=== PATIENT | female | born 1950 | race Caucasian/White ===

== ENCOUNTER 2020-08-06 16:39 | Observation (INO) | payer MEDICARE ==
[~2020-08-06] VITALS: Ht 152.4 cm; Wt 70.0 kg
[~2020-08-06 16:39] MED LIST: ACYCLOVIR400 MG PO; ADVAIR HF1 IN; ADVAIR HF2 IN; ALPHA LIPOIC300 MG PO; AMOX/K CLAV875 M1 PO; BENZONATATE200 MG PO; BUPROPION HCL300 MG PO; BUPROPION OR; CHERATUSSIN OR; CITALOPRAM20 MG PO; CLARITIN RDT10 MG PO; CRESTOR10 MG PO; CRESTOR20 MG PO; DILTIAZEM CD180 MG PO; EFFEXOR37.5 MG PO; ERY-TAB250 MG OR; ERYTHROMYCIN250 MG OR; IBUPROFEN400 MG PO; LEVOCETIRIZI OR; LEVOCETIRIZI PO; LEVOTHROID88 MCG PO; LEVOTHYROXIN88 MC1 PO; LEXAPRO10 MG PO; LORTAB 7.5 OR; LOTENSIN HCT1 TA2 PO; MECLIZINE25 MG PO; MEDDOSEPAK PO; MOTRIN600 MG/TAB PO; MULTIVITAMI1 OR; NASONEX50 MCG/AC; PROAIR HFA IN; PROVENTIL INH17 GM IN; SYMBICORT1 AE1 IN; SYNTHROID100 MCG OR; TESSALON200 MG PO; TRAZODONE100 MG PO; TRAZODONE50 MG PO; TRIAMCINOLON0.11 EX; VESICARE5 MG OR; VITAMIN B-121000 MC1 SL; VITAMIN C500 MG OR; VITAMIN D1000 UNI1 PO; VITAMIN D31000 UNI1 OR; VOSOL2 % OT; VYTORIN 10/201 TAB OR; WAL ZYR D PO; XYZAL5 MG PO; ZINC50 M1 OR; ZITHROMAX500 MG PO; ZPAK PO; ZYRTEC-D AL1 OR; ZYRTEC-D ALG PO; ZYRTEC10 MG OR; [UNRECOGNIZED DRUG - OTHER] XX
--- NOTE | 2020-08-06 16:48 | NUR ---
PT BROUGHT BACK TO ER WITH FAMILY PER W/C
--- NOTE | 2020-08-06 17:46 | NUR ---
IV MEDS AND FLUIDS INFUSING WITHOUT DIFFICULTY. VITALS STABLE ON MONITOR. AT BEDSIDE. CALL LIGHT WITHIN REACH.
[2020-08-06 17:52] LABS: ALKALINE PHOSPHATASE 111 u/l (38-126); ANION GAP 15 (6-22 (CALC)); BILIRUBIN, TOTAL 0.9 mg/dL (0.0-1.4); BUN 14 mg/dL (8-23); BUN/CREATININE RATIO 18 (12-20 (CALC)); CARBON DIOXIDE 25 mmol/l (22-30); CHLORIDE 99 mmol/l (95-108); CREATININE 0.8 mg/dL (0.5-1.0); GFR > 60 ML/MIN (>=60 (CALC)); GFR FOR AFR.AMER. > 60 ML/MIN (>=60 (CALC)); LIPASE 20 u/l (23-300); POTASSIUM 4.5 mmol/l (3.5-5.1); SGOT/AST 25 u/l (9-36); SODIUM 134 mmol/l (137-146); TOTAL PROTEIN 7.5 g/dL (6.3-8.2)
[2020-08-06 18:06] LABS: HEMATOCRIT 42.3 % (37.0-47.0); HEMOGLOBIN 13.6 g/dl (12.0-16.0); IMMATURE GRANULOCYTES 0.6 % (0.0-5.0); MEAN CELL VOLUME 89.6 fL CALC (80.0-100.0); MEAN CORPUSCULAR HGB 28.8 pG CALC (26.0-32.0); MEAN CORPUSCULAR HGB CONC 32.2 g/dL CAL (32.0-36.0); NEUT# 13.45 thou/uL (2.00-7.15); RED BLOOD COUNT 4.72 mill/uL (4.20-5.60); RED CELL DISTRI WIDTH 12.8 % (11.5-15.5)
--- NOTE | 2020-08-06 18:21 | NUR ---
PT RETURNED FROM RADIOLOGY, ATTACHED TO MONITOR. IV MEDS CONTINUE TO INFUSE WITHOUT DIFFICULTY.
[2020-08-06 18:25] LABS: GFR > 60 ML/MIN (>=60 (CALC)); GFR FOR AFR.AMER. > 60 ML/MIN (>=60 (CALC))
[2020-08-06] MEDS ORDERED: LOSARTAN POTASS25 MG PO (18:39)
--- NOTE | 2020-08-06 18:57 | NUR ---
REPORT GIVEN TO MARIAM BILLS.
--- NOTE | 2020-08-06 19:03 | NUR ---
HAND OFF REPORT RECEIVED FROM OCTOBER
[2020-08-06 19:56] LABS: URINE BILIRUBIN - DIPSTICK NEGATIVE (NEGATIVE); URINE BLOOD DIPSTICK TRACE-LYSED (NEGATIVE); URINE COLOR YELLOW; URINE GLUCOSE - DIPSTICK NEGATIVE (NEGATIVE); URINE KETONE NEGATIVE (NEGATIVE); URINE LEUK ESTERASE NEGATIVE (NEGATIVE); URINE NITRITE - DIPSTICK NEGATIVE (Negative); URINE PROTEIN - DIPSTICK NEGATIVE (NEG-TRACE); URINE SPECIFIC GRAVITY <=1.005; URINE UROBILINOGEN - DIPSTICK 0.2 E.U./dL (0.2)
--- NOTE | 2020-08-06 20:00 | NUR ---
TELEPHONE REPORT RECEIVED FROM Augustin MERINO RN IN ED, ROOM 277 PREPARED TO RECEIVE PT.
[2020-08-06 20:15] VITALS: BP 131/80
--- NOTE | 2020-08-06 20:15 | NUR ---
PT ARRIVES TO UNIT VIA STRETCHER ACCOMPANIED BY Augustin MERINO RN. PT AMBULATORY TO BED WITH STEADY BALANCED GAIT.
--- NOTE | 2020-08-06 21:20 | NUR ---
PHYSICAL ASSESMENT AND ADMISSION COMPLETE. SCHEDULED MEDICATION ADMINISTERED. SEE E-MAR. PLAN OF CARE REVIEWED. PT VERBALIZES UNDERSTANDING AND DENIES QUESTIONS. PT DENIES NEEDS AT THIS TIME. CALL WALTER WITHIN REACH AGRESS TO CALL PRN.
[2020-08-07] VITALS: BP 122/64
--- NOTE | 2020-08-07 01:15 | NUR ---
PT LAYING IN BED WITH EYES CLOSED, APPEARS TO BE SLEEPING COMFORTABLY. RESPIRATIONS REGULAR AND UNLABORED. NO APPARENT DISTRESS. CALL WALTER REMAINS WITHIN REACH.
[2020-08-07 04:00] VITALS: BP 123/52
[2020-08-07 04:46] LABS: HEMATOCRIT 39.6 % (37.0-47.0); HEMOGLOBIN 12.8 g/dl (12.0-16.0); MEAN CORPUSCULAR HGB 28.8 pG CALC (26.0-32.0); MEAN CORPUSCULAR HGB CONC 32.3 g/dL CAL (32.0-36.0); RED BLOOD COUNT 4.45 mill/uL (4.20-5.60); RED CELL DISTRI WIDTH 12.8 % (11.5-15.5)
[2020-08-07 05:12] LABS: ANION GAP 14 (6-22 (CALC)); BUN 14 mg/dL (8-23); BUN/CREATININE RATIO 22 (12-20 (CALC)); CALCULATED LDLCHOLESTEROL 117 mg/dL (62-129 (CALC)); CARBON DIOXIDE 23 mmol/l (22-30); CHLORIDE 105 mmol/l (95-108); CHOLESTEROL HDL RATIO 3.1 (<4.4 (CALC)); CREATININE 0.7 mg/dL (0.5-1.0); GFR > 60 ML/MIN (>=60 (CALC)); GFR FOR AFR.AMER. > 60 ML/MIN (>=60 (CALC)); HDL CHOLESTEROL 67 mg/dL (>=40); MAGNESIUM 2.2 mg/dL (1.6-2.3); POTASSIUM 4.7 mmol/l (3.5-5.1); SODIUM 137 mmol/l (137-146); TOTAL CHOLESTEROL 210 mg/dl (0-199); TOTAL TRIGLYCERIDES 131 mg/dl (30-149); VLDL CHOLESTROL 26 mg/dl (1-41 (CALC))
[2020-08-07 07:20] VITALS: BP 131/72
--- NOTE | 2020-08-07 07:20 | NUR ---
PATIENT RESTING IN BED DENIES ANY PAIN AT THIS TIME OR NEEDS RN ASSESSEMENT DONE AT THIS TIME. CALL LIGHT WITHIN REACH.
[2020-08-07 11:51] VITALS: BP 126/42
--- NOTE | 2020-08-07 12:05 | NUR ---
PATIENT RESTING IN CHAIR, DENIES ANY NEEDS AT THIS TIME CALL LIGHT IS WITHIN REACH. PATIENT DENIES ANY NEEDS AT THIS TIME. LUNG SOUNDS REMAIN UNCHANGED.
--- NOTE | 2020-08-07 13:00 | NUR ---
INFORMED CATALINA BOOTH APRN REGARDING PATIENTS TELE READING AND PATIENT RUNNING SINUS TAC. PROVIDER STATED HE IS AWARE AND AT THIS TIME TO CONTINUE TO WATCH.
--- NOTE | 2020-08-07 13:37 | NUR ---
NEB TX NOT GIVEN DUE TO INCREASED HR.
[2020-08-07 15:39] VITALS: BP 137/83
--- NOTE | 2020-08-07 15:54 | NUR ---
PATIENT SITTING UP IN CHAIR AT BEDSIDE. PATIENT DENIES ANY PAIN AND DOES NOT EXHIBIT ANY SIGNS OF SHORTNESS OF BREATH AT THIS TIME. PATIENT EDUCATED ON ROCHEPINE IV FOR HER PNEUMONIA. PATIENT VERBALIZES UNDERSTANDING.
--- NOTE | 2020-08-07 19:00 | NUR ---
REPORT FROM FREDDY BECERRA. ASSUMED PT CARE.
[2020-08-07 19:30] VITALS: BP 128/77
--- NOTE | 2020-08-07 19:31 | NUR ---
PT HR SUSTAINING IN 120-130S. PT NOTED SITTING AT BEDSIDE EATING ICE CREAM. NO APPARENT DISTRESS NOTED. PT DENIES ANY ANXIETY OR PALPITATIONS, APPEARS JITTERY. C/O BACK ACHE. MEDICATED WITH PRN APAP. EKG OBTAINED, NO APPARENT CHANGES NOTED. PT DENIES TAKING ANYTHING FOR HR, ON CELLPHONE READS OFF HOME MEDICATION, STATES PT TAKES METOPROLOL AND LOSARTAN AT HOME. ORDERS RECEIVED FROM CAT TENDER PHYSICIAN TO RESTART PTS METOPROLOL. WILL MEDICATE AND CONTINUE TO MONITOR.
--- NOTE | 2020-08-07 23:06 | NUR ---
PT RESTING IN BED WITH EYES CLOSED. NO APPARENT DISTRESS NOTED. PER TELE MONITOR HR 110, TRENDING DOWN. RESPIRATIONS EVEN AND UNLABORED. UX ENGINEER IN PLACE. IV SITE APPEARS HEALTHY. CALL LIGHT WITHIN REACH. WILL CONTINUE TO MONITOR.
[2020-08-08] VITALS: BP 132/71
--- NOTE | 2020-08-08 03:29 | NUR ---
PT RESTING IN BED WITH EYES CLOSED. NO APPARENT DISTRESS NOTED. RESPIRATIONS EVEN AND UNLABORED. CALL LIGHT WITHIN REACH. WILL CONTINUE TO MONITOR.
[2020-08-08 05:06] VITALS: BP 120/76
[2020-08-08 07:15] VITALS: BP 120/80
--- NOTE | 2020-08-08 07:15 | NUR ---
PATIENT IN BED AT THIS TIME. PATIENT DENIES ANY PAIN OR NEEDS. EXHIBIT ELECTRICIAN DONE SEE INTERVENTIONS. PATIENT DENIES SHORTNESS OF BREATH. CALL LIGHT IS WITHIN REACH TELE MONITOR IN PLACE. SIDERAILS UP X 2.
[2020-08-08 07:59] LABS: HEMATOCRIT 38.5 % (37.0-47.0); HEMOGLOBIN 12.5 g/dl (12.0-16.0); MEAN CELL VOLUME 89.3 fL CALC (80.0-100.0); MEAN CORPUSCULAR HGB CONC 32.5 g/dL CAL (32.0-36.0); RED BLOOD COUNT 4.31 mill/uL (4.20-5.60)
[2020-08-08 08:14] LABS: ANION GAP 9 (6-22 (CALC)); BUN 15 mg/dL (8-23); BUN/CREATININE RATIO 21 (12-20 (CALC)); CARBON DIOXIDE 27 mmol/l (22-30); CHLORIDE 105 mmol/l (95-108); CREATININE 0.7 mg/dL (0.5-1.0); GFR > 60 ML/MIN (>=60 (CALC)); GFR FOR AFR.AMER. > 60 ML/MIN (>=60 (CALC)); MAGNESIUM 1.9 mg/dL (1.6-2.3); POTASSIUM 3.8 mmol/l (3.5-5.1); SODIUM 138 mmol/l (137-146)
[2020-08-08 10:40] VITALS: BP 115/73
[2020-08-08] MEDS ORDERED: MEDDOSEPAK PO (11:45)
[2020-08-08] MEDS ORDERED: LEVAQUIN750 M1 PO (11:45)
--- NOTE | 2020-08-08 12:15 | NUR ---
PATIENT C/0 BACK PAIN AT THIS TIME. 650MG OF TYLENOL GIVEN AT THIS TIME. PATIENT D/C AT THIS TIME.
--- NOTE | 2020-08-08 13:27 | NUR ---
PATIENT D/C AT THIS TIME UNDERSTANDE D/C INSTRUCTIONS.
--- NOTE | 2020-08-08 13:39 | NUR ---
Discharge instructions given. Patient verbalizes understanding of same. Discharged in stable condition via Wheelchair to Home with family. All belongings sent with pt.
--- NOTE | 2020-08-11 13:01 | NUR ---
Pneumonia post discharge call completed today, 08/11/20/ Pt. states she is improving each day. No fever or chills since discharge. SOB is improving. Pt. has a follow up appt. with her PCP on 08/14. Medications prescribed at discharge were obtained and are being taken without issue. No questions or concerns expressed by patient.
== END 2020-08-08 13:39 | disposition home or self-care (01) ==
LOC: ED 16:39 → ED-I 18:52 → ED 19:16 → MS2 19:17
PROVIDERS: Family Medicine; Nurse Practitioner; ADMIT Internal Medicine; ATTEND Internal Medicine
DX: J18.9 Pneumonia, unspecified organism (principal); J44.0 Chronic obstructive pulmonary disease with (acute) lower respiratory infection; J39.8 Other specified diseases of upper respiratory tract; R00.0 Tachycardia, unspecified; I10 Essential (primary) hypertension; E78.5 Hyperlipidemia, unspecified; E03.9 Hypothyroidism, unspecified; F41.9 Anxiety disorder, unspecified; F32.9 Major depressive disorder, single episode, unspecified; Z87.891 Personal history of nicotine dependence; Z90.2 Acquired absence of lung [part of]; Z91.041 Radiographic dye allergy status; Z85.118 Personal history of other malignant neoplasm of bronchus and lung; Z20.822 Contact with and (suspected) exposure to COVID-19
CPT/HCPCS: J1650